=== PATIENT | female | born 1980 | race Two or more races ===

== ENCOUNTER 2018-05-02 22:19 | Emergency (ER) | payer SELFPAY ==
[~2018-05-02] VITALS: Ht 162.6 cm; Wt 59.0 kg
--- NOTE | 2018-05-02 22:42 | Emergency Room Report ---
History of Present Illness General Chief Complaint: Lower Extremity Injury Source: Patient, Family Member Present Illness HPI Patient slipped down 8 stairs that were carpeted at 2 PM. Her left leg went underneath her and behind her and she twisted her ankle. She was able to walk her son to the Park. This evening however the pain started to get worse and more severe. She's having difficulty moving it at this time. There is no numbness. Pain rated 5/10, aching not radiating. No somatic complaints. Not . Allergies: Coded Allergies: No Known Allergies (Unverified , 05/02/18) Patient History Past Medical History: see triage record Social History Narrative with and father Last Menstrual Period: 04/23/2018 Now: No : 2 Para: 1 Reviewed Nursing Documentation: PMH: Agreed; PSxH: Agreed Nursing Documentation-PMH Past Medical History: No History, Except For Hx Cardiac Problems: No - heart murmur Review of Systems Constitutional: Denies: fever Genitourinary: Reports: see HPI Musculoskeletal: Reports: see HPI Skin: Denies: rash, lesions Neurological: Denies: numbness Physical Exam Vital Signs Date Time Temp Pulse Resp B/P (MAP) Pulse Ox O2 Delivery O2 Flow Rate FiO2 05/02/18 22:27 98.0 69 16 122/70 98 Room Air 98.1 Sp02 EP Interpretation: reviewed, normal General Appearance: well appearing, no apparent distress Head: normocephalic, atraumatic Eyes: bilateral eye normal inspection, bilateral eye PERRL ENT: hearing grossly normal, normal voice, moist mucus membranes Neck: full range of motion, supple, no bony tend Respiratory: chest non-tender, lungs clear, normal breath sounds, no respiratory distress, speaking full sentences Cardiovascular #1: regular rate, rhythm Cardiovascular #2: 2+ radial (L), 2+ dorsalis pedis (R), 2+ dorsalis pedis (L) Gastrointestinal: normal inspection Musculoskeletal: other - ankle and dorsum of foot tenderness. Ligaments stable. No knee pain. Ambulatory. Neurologic: alert, motor strength/tone normal, sensory intact, cerebellar normal, normal gait - with limp Psychiatric: mood/affect normal Skin: no rash Medical Decision Making Diagnostic Impression: Primary Impression: Multiple contusions Additional Impression: Left ankle sprain Qualified Codes: S93.492A - Sprain of other ligament of left ankle, initial encounter ER Course The patient presents with left ankle pain after slipping down 8 stairs. Differential includes fracture, sprain, contusion. At this point x-rays are indicated as well as analgesia. No back, hip pain. No other xrays indicated. Xrays without fx or effusion. Improved with analgesia. Reports pain controlled. Pierre applied by me with improvement. Neurovasc checked by me and normal. Patient stable for outpatient observation and treatment. Other X-Ray Diagnostic Results Other X-Ray Diagnostic Results : X-Ray ordered: Rainer otero # of Views/Limited Vs Complete: 3 View Indication: Pain EP Interpretation: Yes Interpretation: no dislocation, no soft tissue swelling, no fractures Impression: No acute disease PA Scribe Text Cole Shrestha MD Last Vital Signs Date Time Temp Pulse Resp B/P (MAP) Pulse Ox O2 Delivery O2 Flow Rate FiO2 05/02/18 23:47 98.0 16 122/70 98 Room Air 208.4 05/02/18 22:27 69 Status: improved Disposition: HOME, SELF-CARE Condition: Improved Scripts Ibuprofen* (MOTRIN*) 600 Mg Tablet 600 MG ORAL Q6H PRN for For Pain, #16 TAB 1 Refill Prov: Cole Shrestha M.D. 05/02/18 Cole Shrestha M.D. May 02, 2018 22:42
[2018-05-02] MEDS ORDERED: IBUPROFEN600 MG ORAL (23:40)
[2018-05-02 23:47] VITALS: BP 122/70
--- NOTE | 2018-05-03 10:17 | Diagnostic Imaging Report ---
Indication: left ankle pain Comparison: None Findings: 3 views of the left ankle obtained. No acute fracture, malalignment, periostitis, or osteochondral defects are identified. Soft tissues are unremarkable. Impression: No acute findings
== END 2018-05-02 23:50 | disposition home or self-care (01) ==
LOC: EMR 22:58
DX: S93.402A Sprain of unspecified ligament of left ankle, initial encounter (principal); M25.572 Pain in left ankle and joints of left foot; W10.2XXA Fall (on)(from) incline, initial encounter; Y93.9 Activity, unspecified; Y92.9 Unspecified place or not applicable; Y99.9 Unspecified external cause status
CPT/HCPCS: 99283